=== PATIENT | female | born 1955 | race Caucasian/White ===

== ENCOUNTER → 2020-06-11 13:49 | Outpatient (CLI) | payer SELFPAY ==
--- NOTE | ~2020-06-11 | MM_ITS ---
EXAMINATION: MM screening [facility] BI w sebastian HISTORY: Screening mammogram TECHNIQUE: Craniocaudal and mediolateral oblique 3-D tomosynthesis images were obtained and synthetic 2-D images were generated. CAD analysis was submitted and interpreted. COMPARISON: 05/10/2018, 04/12/2016, 03/04/2014 BREAST PARENCHYMAL COMPOSITION: The breasts are almost entirely fatty. FINDINGS: There is no evidence of suspicious mass, calcification, or architectural distortion to sugg est malignancy in either breast. There has been no suspicious interval change. IMPRESSION: 1. No mammographic evidence of malignancy. 2. Recommend routine screening mammography in one year. BI-RADS Category 1: Negative Reviewed, dictated and finalized at location A.
== END ==
PROVIDERS: PCP Family Medicine; Visit Provider Family Medicine
DX: Z12.31 Encounter for screening mammogram for malignant neoplasm of breast (principal)
CPT/HCPCS: 77063; 77067

== ENCOUNTER 2021-08-02 01:09 | Day surgery (SDC) | payer MEDICARE, SELFPAY ==
[2021-07-21 14:45] VITALS: BMI 31.8
[2021-08-02 08:17] VITALS: BP 120/81; PULSE 95; RESP 16; TEMP 36.1; O2SAT 97; BMI 31.7
[2021-08-02] MEDS: LACTATED RINGERS 1,000 ML 150 ML IV CONT (08:39)
--- NOTE | 2021-08-02 08:59 | WPDGICN ---
Assessment and Plan Assessment and plan (1) History of colon polyps: Code(s): Z86.010 - Personal history of colonic polyps Status: Acute Assessment and Plan: Patient has a history of colon polyp for this reason surveillance colonoscopy is advised at this time. Follow-up exam it typically at 5 year intervals is anticipated. GI Consult Note Consult date/time: 08/02/21 08:59 HPI: Laure Martinez is a 66 year old female Presents for screening colonoscopy. She reports that her weight appetite bowel movements are normal. She denies abdominal pain. She has had no bleeding. She has had a prior colon polyp removed from the colon. This was benign. Her most recent colonoscopy 5 years ago was unremarkable. Patient presents today for surveillance screening colonoscopy. Review of Systems Review of Systems: All systems reviewed & are unremarkable except as noted in HPI and below PMFSH Past Medical History Medical History History of measles History of mumps Family History Family History Mother Hypertension Cerebrovascular accident Father Family history of coronary artery disease Heart disease Sibling Family history of malignant neoplasm Malignant neoplasm of prostate Social History Social History (Updated 05/20/21 @ 14:34 by Sophia Schwartz CMA) Smoking status: Never smoker Alcohol intake: never Substance use: never Substance use type: does not use Living arrangements: alone Gender identity (if verbalized by the patient): Female Spiritual care concerns: No Meds Home Medications and Allergies Home Medications Medication Instructions Recorded Confirmed Type calcium carbonate 600 mg (1,500 1 tablet PO BID tablet 11/03/19 08/02/21 History mg)-vitamin D3 200 unit tablet multivitamin 1 tablet PO DAILY 03/26/20 08/02/21 History Allergies Allergy/AdvReac Type Severity Reaction Status Date / Time No Known Allergies Allergy Verified 08/02/21 08:27 Vital Signs Vital Signs - 24 hr 08/02/21 08:17 Temperature 97.0 F L Pulse Rate 95 Respiratory Rate 16 Blood Pressure 120/81 Pulse Oximetry 97 Exam Narrative: Physical exam reveals patient to be alert. Vital signs stable. HEENT exam is unremarkable. Patient is anicteric. Lungs are clear to auscultation and to percussion. Heart is without murmur or extra sounds. Abdominal exam bowel sounds are present soft nontender with no organomegaly. Digital external rectal exam is normal.
--- NOTE | 2021-08-02 09:08 | P.PNAN_ITS ---
Anes - Initial Pre Proc Eval Procedure: Operation Date: 08/02/21 09:45 Proposed Procedures p Screening Colonoscopy - Chase Gonzalez MD Date/Time: 08/02/21 09:08 Surgeon: Chase Gonzalez MD Pre Op Diagnosis: hx of colon polyps Patient Data Age: 66 Gender: F Height: 1.63 m Weight: 83.8 kg Last Vital Signs Temp 36.1 C L 08/02/21 08:17 Pulse 95 08/02/21 08:17 Resp 16 08/02/21 08:17 BP 120/81 08/02/21 08:17 Pulse Ox 97 08/02/21 08:17 Allergies Allergy/AdvReac Type Severity Reaction Status Date / Time No Known Allergies Allergy Verified 08/02/21 08:27 Home Medications Medication Instructions Recorded Confirmed Type calcium carbonate 600 mg (1,500 1 tablet PO BID tablet 11/03/19 08/02/21 History mg)-vitamin D3 200 unit tablet multivitamin 1 tablet PO DAILY 03/26/20 08/02/21 History Patient hx anesthesia problems: none Family hx anesthesia problems: none Results Review: All pre-operative results and documents have been reviewed as part of the pre-operative evaluation. [facility] Past Medical History Medical History (Updated 08/02/21 @ 09:00 by Chase Gonzalez MD) History of measles History of mumps Surgical History Surgical History (Updated 08/02/21 @ 09:11 by Thierno Mortensen MD) H/O colonoscopy Family History Family History Mother Hypertension Cerebrovascular accident Father Family history of coronary artery disease Heart disease Sibling Family history of malignant neoplasm Malignant neoplasm of prostate Social History Social History Smoking status: Never smoker Alcohol intake: never Substance use: never Substance use type: does not use Living arrangements: alone Gender identity (if verbalized by the patient): Female Spiritual care concerns: No Anes - Eval Final PreProcedure Day of Procedure 08/02/21 09:08 Patient weight: obese Heart: regular rate and rhythm Lungs: clear to auscultation Airway: Mallampati scale class II Neurological: alert and oriented Last oral intake: >/= 8 hours ASA classification: II Emergent: no Anesthetic plan: proceed Anesthesia type and monitoring: general GIVS and standard monitoring Results Review: All pre-operative results and documents have been reviewed as part of the pre-operative evaluation. Informed Consent: The patient's anesthetic plan and its attendant risks and benefits were discussed with the patient/family/POA. Questions were solicited and answers provided to the satisfaction of the patient/family/POA.
[2021-08-02 10:14] VITALS: BP 104/70; PULSE 76; RESP 17; O2SAT 98
[2021-08-02 10:24] VITALS: BP 112/69; PULSE 73; RESP 16; O2SAT 99
[2021-08-02 10:34] VITALS: BP 122/84; PULSE 69; RESP 15; O2SAT 100
== END 2021-08-02 10:45 | disposition home or self-care (01) ==
PROVIDERS: PCP Family Medicine; Visit Provider Internal Medicine Gastroenterology
PROC: 0DJD8ZZ Inspection of Lower Intestinal Tract, Via Natural or Artificial Opening Endoscopic (ICD-10-PCS; CPT 45378; principal; 2021-08-02 09:45)
DX: Z12.11 Encounter for screening for malignant neoplasm of colon (principal); Z86.010 Personal history of colon polyps; K57.30 Diverticulosis of large intestine without perforation or abscess without bleeding; K64.8 Other hemorrhoids
CPT/HCPCS: G0105; J2704; J7120

== ENCOUNTER → 2021-08-19 10:05 | Outpatient (CLI) | payer MEDICARE, SELFPAY ==
--- NOTE | ~2021-08-19 | MM_ITS ---
EXAMINATION: MM screening [facility] BI w sebastian HISTORY: Screening TECHNIQUE: Craniocaudal and mediolateral oblique 3-D tomosynthesis images were obtained and synthetic 2-D images were generated. CAD analysis was submitted and interpreted. COMPARISON: Comparison to multiple prior studies sequentially, with oldest reviewed study dated 03/06. BREAST PARENCHYMAL COMPOSITION: The breasts are almost entirely fatty. FINDINGS: There is no evidence of suspicious mass, calcification, or architectural distortion to sugg est malignancy in either breast. There has been no suspicious interval change. IMPRESSION: 1. No mammographic evidence of malignancy. 2. Recommend routine screening mammography in one year. BI-RADS Category 1: Negative Reviewed, dictated and finalized at location A. INFORMATICS
--- NOTE | ~2021-08-19 | DEXA_ITS ---
Bone Density Report Name: MICHELLE RAI Age: 66 Sex: Female Ethnicity: White Date of : 1955 Indication: osteopenia; postmenopausal Referring Provider: Landon Long Study: Bone densitometry was performed. Exam Date: August 19, 2021 Accession number: [id number] Bone Density: Region BMD T-score Z-score Classification AP Spine (L1-L4) 0.947 -0.9 0.9 Normal Femoral Neck (Left) 0.644 -1.8 -0.3 Osteopenia Total Hip (Left) 0.841 -0.8 0.4 Normal Femoral Neck (Right) 0.707 -1.3 0.3 Osteopenia Total Hip (Right) 0.875 -0.5 0.7 Normal Total Hip Mean 0.858 -0.7 0.6 Normal World Health Organization criteria for BMD impression classify patients as: Normal (T-score at or above -1.0), Osteopenia (T-score between -1.0 and -2.5), or Osteoporosis (T-score at or below -2.5). 10-year Fracture Risk(1): Major Osteoporotic Fracture 9.6% Hip Fracture 1.3% Reported Risk Factors: [place] (), Neck BMD=0.644, BMI=32.1 (1) FRAX(R) Version 3.08. Fracture probability calculated for an untreated patient. Fracture probability may be lower if the patient has received treatment. Previous Exams: Region Exam Age BMD T-score BMD Change BMD Change Date g/cm2 vs Baseline vs Previous AP Spine(L1-L4) 08/19/2021 66 0.947 -0.9 0.027 0.027 04/12/2016 61 0.920 -1.2 Total Hip(Left) 08/19/2021 66 0.841 -0.8 0.018 0.018 04/12/2016 61 0.823 -1.0 Total Hip(Right) 08/19/2021 66 0.875 -0.5 -0.009 -0.009 04/12/2016 61 0.884 -0.5 *Denotes significance at 95% confidence level, LSC for AP Spine = 0.022 g/cm2, LSC for Total Hip = 0.027 g/cm2 Clinical Information Provided by Patient: Has used the following medications: Vitamin D, Calcium Patient maximum height was 64.5 Menopause Age: 49 No regular weight bearing exercise Drinks caffeinated beverages Onset of menses at age 14 Number of children 0 Impression: The patient has low bone mass, based on the Left Femoral Neck T-score. The patient has an estimated ten-year risk of hip fracture of 1.3% and an estimated ten-year risk of major fracture of 9.6%, based on the WHO FRAX algorithm. No significant bone loss was observed. Discussion: BONE DENSITY IS LOW AT ONE OR MORE SKELETAL SITES. This patient's lowest T-score is low at one or more skeletal sites. It meets the World Health Organization's (WHO) criteria for ?low bone mass? (T-score b
== END ==
PROVIDERS: PCP Family Medicine; Visit Provider Physician Assistant Medical
DX: Z12.31 Encounter for screening mammogram for malignant neoplasm of breast (principal); Z78.0 Asymptomatic menopausal state; M85.851 Other specified disorders of bone density and structure, right thigh; M85.852 Other specified disorders of bone density and structure, left thigh
CPT/HCPCS: 77063; 77067; 77080

== ENCOUNTER → 2022-12-08 09:58 | Outpatient (CLI) | payer MEDICARE, SELFPAY ==
--- NOTE | ~2022-12-08 | MM_ITS ---
EXAMINATION: MM screening [facility] BI w sebastian HISTORY: Screening TECHNIQUE: Craniocaudal and mediolateral oblique 3-D tomosynthesis images were obtained and synthetic 2-D images were generated. CAD analysis was submitted and interpreted. COMPARISON: Comparison to multiple prior studies sequentially, with oldest reviewed study dated 03/04. BREAST PARENCHYMAL COMPOSITION: The breasts are almost entirely fatty. FINDINGS: There is no evidence of suspicious mass, calcification, or architectural distortion to sugg est malignancy in either breast. There has been no suspicious interval change. IMPRESSION: 1. No mammographic evidence of malignancy. 2. Recommend routine screening mammography in one year. BI-RADS Category 1: Negative Reviewed, dictated and finalized at location A.
== END ==
PROVIDERS: PCP Family Medicine; Visit Provider Physician Assistant
DX: Z12.31 Encounter for screening mammogram for malignant neoplasm of breast (principal)
CPT/HCPCS: 77063; 77067

== ENCOUNTER → 2023-11-09 10:10 | Outpatient (CLI) | payer MEDICARE, SELFPAY ==
--- NOTE | ~2023-11-09 | DEXA_ITS ---
Bone Density Report Name: MICHELLE RAI Age: 68 Sex: Female Ethnicity: White Date of : 1955 Indication: postmenopausal; screening for osteoporosis; Referring Provider: ARTI JAMISON Study: Bone densitometry was performed. Exam Date: November 09, 2023 Accession number: [id number] Bone Density: Region BMD T-score Z-score Classification AP Spine (L1-L4) 0.938 -1.0 1.0 Normal Femoral Neck (Left) 0.643 -1.9 -0.2 Osteopenia Total Hip (Left) 0.853 -0.7 0.6 Normal Femoral Neck (Right) 0.719 -1.2 0.5 Osteopenia Total Hip (Right) 0.912 -0.2 1.1 Normal Total Hip Mean 0.883 -0.5 0.9 Normal World Health Organization criteria for BMD impression classify patients as: Normal (T-score at or above -1.0), Osteopenia (T-score between -1.0 and -2.5), or Osteoporosis (T-score at or below -2.5). 10-year Fracture Risk(1): Major Osteoporotic Fracture 9.8% Hip Fracture 1.4% Reported Risk Factors: [place] (), Neck BMD=0.643, BMI=35.3 (1) FRAX(R) Version 3.08. Fracture probability calculated for an untreated patient. Fracture probability may be lower if the patient has received treatment. Previous Exams: Region Exam Age BMD T-score BMD Change BMD Change Date g/cm2 vs Baseline vs Previous AP Spine(L1-L4) 11/09/2023 68 0.938 -1.0 0.018 -0.009 08/19/2021 66 0.947 -0.9 0.027 0.027 04/12/2016 61 0.920 -1.2 Total Hip(Left) 11/09/2023 68 0.853 -0.7 0.030 0.012 08/19/2021 66 0.841 -0.8 0.018 0.018 04/12/2016 61 0.823 -1.0 Total Hip(Right) 11/09/2023 68 0.912 -0.2 0.028 0.037* 08/19/2021 66 0.875 -0.5 -0.009 -0.009 04/12/2016 61 0.884 -0.5 *Denotes significance at 95% confidence level, LSC for AP Spine = 0.022 g/cm2, LSC for Total Hip = 0.027 g/cm2 Clinical Information Provided by Patient: Has used the following medications: Vitamin D, Calcium Patient maximum height was 64.5 Menopause Age: 49 Drinks caffeinated beverages Onset of menses at age 14 Number of children 0 Impression: The patient has low bone mass, based on the Left Femoral Neck T-score. The patient has an estimated ten-year risk of hip fracture of 1.4% and an estimated ten-year risk of major fracture of 9.8%, based on the WHO FRAX algorithm. No significant bone loss was observed. Discussion: BONE DENSITY IS LOW AT ONE OR MORE S
== END ==
PROVIDERS: PCP Nurse Practitioner Family; Visit Provider Nurse Practitioner Family
DX: Z78.0 Asymptomatic menopausal state (principal); M85.89 Other specified disorders of bone density and structure, multiple sites
CPT/HCPCS: 77080